=== PATIENT | female | born 1960 | race Caucasian/White ===

== ENCOUNTER 2018-08-25 00:32 | Emergency (ER) | payer MEDICAID ==
[~2018-08-25] VITALS: Ht 162.6 cm; Wt 78.0 kg
--- NOTE | 2018-08-25 01:15 | NUR ---
DONNA FROM HOME. AAOX4. NAD, BREATHING IS EVEN AND UNLABORED. AMBULATORY. C/O HIGH BLOOD PRESSURE THIS EVENING WITH HIGH RESULT 183/101. PT REPORTED THAT SHE TOOK 1 LISINOPRIL ,UNKNOWN DOSE AND 1/2 ATENOLOL, UNKNOWN DOSE. PT ALSO REPORTS THAT SHE FELT TIGHTNESS ON HER NECK, SHOULDER AND SHARP PAIN ON HER LEFT CHEST EARLIER THIS EVENING. PT TO ER BED 3. HOOKED ON MONITOR. AWAITING MD FOR CHRISTIANO.
--- NOTE | 2018-08-25 02:02 | NUR ---
IV LINE OBTAINED ON R HAND 20G. BLOOD DRAWN, SENT TO LAB. AT BEDSIDE FOR EVAL. AWAITING ORDERS
--- NOTE | 2018-08-25 02:11 | NUR ---
EKG AT BEDSIDE
[2018-08-25 02:19] LABS: BASOPHILS # (AUTO) 0.1 /CMM (0.0-0.2); BASOPHILS % (AUTO) 1.1 % (0.0-2.0); EOSINOPHILS % (AUTO) 4.5 % (0.0-6.0); HEMATOCRIT 37 % (33-45); HEMOGLOBIN 12.3 g/dL (11.5-14.8); LYMPHOCYTES % (AUTO) 21.3 % (20.0-44.0); MEAN CORPUSCULAR HGB CONC 33 g/dl (31.0-36.0); MEAN CORPUSCULAR VOLUME 91 fL (82-100); MONOCYTES # (AUTO) 0.7 /CMM (0.1-1.30); MONOCYTES % (AUTO) 7.1 % (2.0-12.0); NEUTROPHILS # (AUTO) 6.3 /CMM (1.8-8.9); PLATELET COUNT (AUTO) 284 /CMM (150-450); RED BLOOD CELL COUNT(AUTO) 4.06 MIL/uL (4.0-5.2); WHITE BLOOD COUNT (AUTO) 9.5 K/uL (4.3-11.0)
[2018-08-25 02:31] LABS: CALCIUM, SERUM 9.3 mg/dL (8.5-10.1); CARBON DIOXIDE 27 mmol/L (21-32); CHLORIDE 105 mmol/L (98-107); CREATININE 0.7 mg/dL (0.6-1.3); GLUCOSE 126 mg/dL (74-106); POTASSIUM 3.9 mmol/L (3.5-5.1); SODIUM SERUM 141 mmol/L (136-145); UREA NITROGEN, BLOOD 18 mg/dL (7-18)
[2018-08-25 02:45] LABS: ALANINE AMINOTRANSFERASE 52 U/L (12-78); ALBUMIN 3.8 g/dL (3.4-5.0); ALKALINE PHOSPHATASE 112 U/L (46-116); ASPARTATE AMINOTRANSFERASE 28 U/L (15-37); B-TYPE NATRIURETIC PEPTIDE 33 PG/ML (0-125); BILIRUBIN,DIRECT 0.1 mg/dL (0.0-0.2); BILIRUBIN,TOTAL 0.2 mg/dL (0.2-1.0); TOTAL PROTEIN, SERUM 7.6 g/dL (6.4-8.2)
--- NOTE | 2018-08-25 04:18 | NUR ---
Patient discharged to home in stable condition. Written and verbal after care instructions given. Patient verbalizes understanding of instruction.IV removed. Catheter intact and site benign. Pressure and 4x4 applied to site. No bleeding noted. Pt ambulatory with a steady gait
[2018-08-25 04:19] VITALS: BP 143/87
== END 2018-08-25 04:18 | disposition home or self-care (01) ==
LOC: ER 00:34
DX: R07.89 Other chest pain (principal); I10 Essential (primary) hypertension; R94.31 Abnormal electrocardiogram [ECG] [EKG]; Z98.890 Other specified postprocedural states; Z60.2 Problems related to living alone
CPT/HCPCS: 36415; 71045-TC; 80048-TC; 80076-TC; 83880; 84484-TC; 85025-TC; 85730-TC

== ENCOUNTER 2021-05-06 17:29 | Emergency (ER) | payer MEDICAID ==
[~2021-05-06] VITALS: Ht 162.6 cm; Wt 74.8 kg
[2021-05-06 18:18] LABS: BASOPHILS # (AUTO) 0.1 K/uL (0.0-0.2); BASOPHILS % (AUTO) 1.2 % (0.0-2.0); EOSINOPHILS % (AUTO) 2.8 % (0.0-6.0); HEMATOCRIT 35 % (33-45); HEMOGLOBIN 11.9 g/dL (11.5-14.8); LYMPHOCYTES # (AUTO) 2.2 K/uL (0.8-4.8); LYMPHOCYTES % (AUTO) 20.5 % (20.0-44.0); MEAN CORPUSCULAR HGB CONC 34 g/dl (31.0-36.0); MEAN CORPUSCULAR VOLUME 90 fL (82-100); MONOCYTES # (AUTO) 0.8 K/uL (0.1-1.30); MONOCYTES % (AUTO) 7.5 % (2.0-12.0); NEUTROPHILS # (AUTO) 7.3 K/uL (1.8-8.9); PLATELET COUNT (AUTO) 343 K/uL (150-450); RED BLOOD CELL COUNT(AUTO) 3.88 MIL/uL (4.0-5.2); WHITE BLOOD COUNT (AUTO) 10.8 K/uL (4.3-11.0)
[2021-05-06 18:23] LABS: BILIRUBIN,URINE NEGATIVE (NEGATIVE); COLOR,URINE YELLOW (YELLOW); LEUKOCYTE ESTERASE ,URINE NEGATIVE (NEGATIVE); NITRITE, URINE NEGATIVE (NEGATIVE); PROTEIN,URINE NEGATIVE (NEGATIVE); UGLUCOSE NEGATIVE (NEGATIVE); UROBILINOGEN,URINE 0.2 EU/dL (0.2)
[2021-05-06 18:29] LABS: CALCIUM, SERUM 8.8 mg/dL (8.5-10.1); CREATININE 0.6 mg/dL (0.6-1.3); POTASSIUM 4.1 mmol/L (3.5-5.1)
[2021-05-06 18:33] LABS: BACTERIA,URINE 1+ /HPF (None Seen); SQUAMOUS EPITHELIAL CELL,UR 0-2 /HPF (None Seen); WBC,URINE 0-2 /HPF (0-3)
[2021-05-06 19:50] VITALS: BP 143/83
== END 2021-05-06 19:51 | disposition home or self-care (01) ==
LOC: ER 18:02
DX: R50.9 Fever, unspecified (principal); I10 Essential (primary) hypertension; Z20.822 Contact with and (suspected) exposure to COVID-19; E87.1 Hypo-osmolality and hyponatremia
CPT/HCPCS: 36415; 71045; 71250; 80048; 81001; 83605; 85025; 87086; 87426; 87804; 99285; C9803

== ENCOUNTER 2022-04-04 21:05 | Inpatient (IN) | payer MEDICAID ==
[~2022-04-04] VITALS: Ht 160 cm; Wt 74.8 kg
--- NOTE | 2022-04-04 22:45 | NUR ---
[facility] TRIAGE 182/108. STOPPED TAKING MEDS X2 WEEKS. COMPLAINING OF CHEST PRESSURE USED ON/OFF HEADACHE AND BLURRY VISION. PATIENT IS AAOX4. ABLE TO MAKE NEEDS KNOWN. PLACED COMFORTABLY IN BED. VITALS CHECKED.
--- NOTE | 2022-04-04 22:51 | NUR ---
EKG DONE AT BEDSIDE.
[2022-04-04 23:42] LABS: BASOPHILS % (AUTO) 0.6 % (0.0-2.0); EOSINOPHILS % (AUTO) 1.9 % (0.0-6.0); HEMATOCRIT 36 % (33-45); LYMPHOCYTES # (AUTO) 1.6 K/uL (0.8-4.8); LYMPHOCYTES % (AUTO) 27.9 % (20.0-44.0); MEAN CORPUSCULAR HGB CONC 33 g/dl (31.0-36.0); MEAN CORPUSCULAR VOLUME 93 fL (82-100); MONOCYTES # (AUTO) 0.6 K/uL (0.1-1.30); MONOCYTES % (AUTO) 10.6 % (2.0-12.0); NEUTROPHILS # (AUTO) 3.4 K/uL (1.8-8.9); PLATELET COUNT (AUTO) 396 K/uL (150-450); RED BLOOD CELL COUNT(AUTO) 3.87 MIL/uL (4.0-5.2); WHITE BLOOD COUNT (AUTO) 5.7 K/uL (4.3-11.0)
--- NOTE | 2022-04-04 23:44 | NUR ---
BLOOD DRAWN AND SENT TO LAB
--- NOTE | 2022-04-04 23:45 | NUR ---
XRAY AT BEDSIDE
[2022-04-05 00:21] LABS: CALCIUM, SERUM 9.7 mg/dL (8.5-10.1); CARBON DIOXIDE 23 mmol/L (21-32); CHLORIDE 104 mmol/L (98-107); CREATININE 0.7 mg/dL (0.6-1.3); GLUCOSE 93 mg/dL (74-106); POTASSIUM 3.7 mmol/L (3.5-5.1); SODIUM SERUM 135 mmol/L (136-145); UREA NITROGEN, BLOOD 19 mg/dL (7-18)
[2022-04-05] MEDS ORDERED: MAGNESIUM HYDROXIDE 30 ML UDC PO PRN (03:30)
[2022-04-05] MEDS ORDERED: ONDANSETRON HCL/PF 4 MG/2 ML VIAL IVP PRN (03:30)
[2022-04-05] MEDS ORDERED: ACETAMINOPHEN 325 MG TABLET PO PRN (03:30)
[2022-04-05] MEDS ORDERED: MAG HYDROX/AL HYDROX/SIMETH 30 ML UDC PO PRN (03:30)
[2022-04-05] MEDS ORDERED: ZOLPIDEM TARTRATE 5 MG TABLET PO PRN (03:30)
[2022-04-05] MEDS ORDERED: Z GUARD REMEDY 4 OZ OINT TP PRN (03:30)
[2022-04-05] MEDS ORDERED: hydrALAZINE HCL 25 MG TABLET PO PRN (03:30)
--- NOTE | 2022-04-05 07:15 | NUR ---
REPORT GIVEN TO MARCELLA MOSER
--- NOTE | 2022-04-05 07:15 | NUR ---
REceived pt from CHARLA RN pt awake and alert dineses chest pain or sob
--- NOTE | 2022-04-05 07:47 | NUR ---
room 310-2
[2022-04-05] MEDS ORDERED: PANTOPRAZOLE 40 MG TABLET.DR PO ONE (07:54)
[2022-04-05] MEDS ORDERED: HYDROCHLOROTHIAZIDE 25 MG TABLET ONE (07:54)
[2022-04-05] MEDS: PANTOPRAZOLE 40 MG TABLET.DR PO SCH (07:55)
--- NOTE | 2022-04-05 08:05 | NUR ---
TO ROOM 310-2 VIA GARNY AWAKE AND ALERT NO CHEST PAIN NO SOB
[2022-04-05 08:12] VITALS: BP 167/56
--- NOTE | 2022-04-05 08:15 | NUR ---
RECEIVED PT VIA GURNEY, PT A/O X4, BREATHING EVENLY AND UNLABORED, NO SIGNS OF DISTRESS NOTED VITALS: BP:167/56; HR: 98; R: 20; T: 98.2; SPO2: 98. PT DENIES ANY PAIN, OR DISCOMFORT, SKIN ASSESSMENT PERFORMED, CDI, NO EDEMA PRESENT, BOWEL SOUNDS ACTIVE. PT HAS IV ACCESS ON LAC #20G PATENT AND INTACT. PT WAS ORIENTED TO RM AND HOW TO USE THE CALL LIGHT, ALL BELONGINGS ACCOUNTED FOR, SAFETY MEASURES IN PLACE, BED IN LOW, LOCKED POSITION, HOB ELEVATED CALL LIGHT WITHIN REACH. WILL CONTINUE TO MONITOR PT.
[2022-04-05] MEDS ORDERED: AMLO-212 PO (09:01)
[2022-04-05] MEDS ORDERED: LOSA50TA39 PO (09:01)
[2022-04-05] MEDS: VALSARTAN 80 MG TABLET PO SCH ×2 (09:52→09:54)
[2022-04-05] MEDS ORDERED: CLONIDINE HCL 0.1 MG TABLET PO PRN (11:00)
[2022-04-05] MEDS: AMLODIPINE BESYLATE 5 MG TABLET PO SCH (11:28)
[2022-04-05] MEDS: LOSARTAN POTASSIUM 50 MG TABLET PO SCH (11:29)
[2022-04-05 12:00] VITALS: BP 141/53
--- NOTE | 2022-04-05 12:30 | NUR ---
RN/CTA PATIENT AOX3. ABLE TO MAKE NEEDS KNOWN. DENIED PAIN OR SOB. AWARE OF PLAN OF CARE. NOTED CONSENTF IN CHART - SIGNED.
[2022-04-05] MEDS ORDERED: CT SWABBABLE VALVE TRANS SET 1 EA INFUS.SET MC ONE (12:32)
[2022-04-05] MEDS ORDERED: IV NS 0.9% 250 ML IV ONE (12:32)
[2022-04-05] MEDS ORDERED: NITROGLYCERIN 0.4 MG/TAB BOTTLE ONE (12:32)
[2022-04-05] MEDS ORDERED: IOHEXOL-350 100 ML VIAL IV ONE ×2 (12:32→12:51)
[2022-04-05] MEDS ORDERED: METOPROLOL TARTRATE INJ 5 MG/5 ML AMPUL ONE ×3 (12:32→12:43)
[2022-04-05] MEDS: METOPROLOL TARTRATE INJ 5 MG/5 ML AMPUL IVP PRN ×2 (12:35→12:40)
--- NOTE | 2022-04-05 12:50 | NUR ---
CTA/RN 1245 - IV TO LAC 20G AND RFA 20G (UPPER) BOTH INFILTRATED DURING THE PROCEDURE. FACILITY PROTOCOL INITIATED. WARM COMPRESS APPLIED TO AFFECTED AREAS. IV STARTED TO RFA 20G (LOWER) IN PLACE AND PATENT. 1250 - COMPLETED PROCEDURE, PATIENT EMMETT. REPORT GIVEN TO AUGUST FOR JILL.
[2022-04-05] MEDS ORDERED: NITROGLYCERIN 0.4 MG/TAB BOTTLE SL ONE (14:00)
[2022-04-05 16:00] VITALS: BP 131/55
--- NOTE | 2022-04-05 19:15 | NUR ---
PT IN BED ASLEEP, EASY TO AROUSE. ABLE TO VERBALIZE NEEDS. NO ACUTE EVENTS THROUGHOUT THE DAY. SATURATING AT 98% ON ROOM AIR. NO SOB OR NOTED. AFEBRILE. DENIES PAIN AT THIS TIME. ON TELE MONITOR READING SINUS RHYTHM AT 75 BPM. RIGHT HAND IV ACCESS #20G INTACT, PATENT AND FLUSHING.. ALL DUE MEDS GIVEN AND NEEDS ATTENDED. SAFETY PRECAUTIONS MAINTAINED. WILL ENDORSE TO NEXT ROUTE SALES PERSON RN FOR JILL.
--- NOTE | 2022-04-05 19:34 | NUR ---
RN OPENING NOTES; RECEIVED PT IN BED SLEEPING WITH HOB ELEVATED,EMMETT WELL ON RM AIR,SATTING 97.6% NO SIGN SOB/DISTRESS NOTED,IV ON JADE 20G PATENT AND INTACT,SAFETY MEASURE IN PLACE,CALL LIGHT WITHIN REACH,WILL CONTINUE TO MONITOR,
[2022-04-05 20:00] VITALS: BP 125/58
[2022-04-06] VITALS: BP 123/65
[2022-04-06 04:00] VITALS: BP 118/62
--- NOTE | 2022-04-06 06:49 | NUR ---
RN CLOSING NOTES; PT IN BED AAOX4,ABLE TO MAKE NEEDS KNOWN,EMMETT WELL ON RM AIR,SATTING 98% NO SIGN SOB/DISTRESS NOTED,NO COMPLAINED OF PAIN/DISCOMFORT DURING SHIFT,DUE MEDS GIVEN ORDER,ALL NEEDS ATTENDED,IV ON JADE 20G AND RFAPATENT AND INTACT,SAFETY MEASURE IN PLACE,CALL LIGHT WITHIN REACH,WILL ENDORSED TO NEXT SHIFT.
[2022-04-06 07:21] LABS: BASOPHILS % (AUTO) 0.4 % (0.0-2.0); HEMATOCRIT 39 % (33-45); LYMPHOCYTES # (AUTO) 1.9 K/uL (0.8-4.8); LYMPHOCYTES % (AUTO) 21.8 % (20.0-44.0); MEAN CORPUSCULAR HGB CONC 34 g/dl (31.0-36.0); MEAN CORPUSCULAR VOLUME 90 fL (82-100); MONOCYTES # (AUTO) 0.6 K/uL (0.1-1.30); MONOCYTES % (AUTO) 6.9 % (2.0-12.0); NEUTROPHILS # (AUTO) 5.9 K/uL (1.8-8.9); NEUTROPHILS % (AUTO) 67.9 % (43.0-81.0); PLATELET COUNT (AUTO) 315 K/uL (150-450); RED BLOOD CELL COUNT(AUTO) 4.29 MIL/uL (4.0-5.2); WHITE BLOOD COUNT (AUTO) 8.8 K/uL (4.3-11.0)
--- NOTE | 2022-04-06 07:35 | NUR ---
RN OPENING NOTE RECEIVED PT IN BED SLEEPING WITH HOB ELEVATED,EMMETT WELL ON RM AIR, O2 SAT= 98% NO SIGN OF SOB/DISTRESS NOTED. IV ON JADE 20G PATENT AND INTACT. SAFETY MEASURE IN PLACE. CALL LIGHT WITHIN REACH. WILL CONTINUE TO MONITOR,
[2022-04-06 07:37] LABS: CALCIUM, SERUM 9.2 mg/dL (8.5-10.1); CREATININE 0.8 mg/dL (0.6-1.3); MAGNESIUM 2.3 mg/dL (1.8-2.4); PHOSPHORUS 4.3 mg/dL (2.5-4.9); POTASSIUM 3.7 mmol/L (3.5-5.1)
[2022-04-06 08:00] VITALS: BP 142/65
[2022-04-06] MEDS: PANTOPRAZOLE 40 MG TABLET.DR PO SCH (08:04)
[2022-04-06 09:08] LABS: CHOLESTEROL 261 mg/dL (<200); HDL CHOLESTEROL 67 mg/dL (40-60); LDL 166 mg/dL (0-99); TRIGLYCERIDES 117 mg/dL (30-150)
[2022-04-06] MEDS: VALSARTAN 80 MG TABLET PO SCH (10:12)
[2022-04-06] MEDS: LOSARTAN POTASSIUM 50 MG TABLET PO SCH (10:13)
[2022-04-06] MEDS: AMLODIPINE BESYLATE 5 MG TABLET PO SCH (10:13)
[2022-04-06] MEDS ORDERED: AMLO-212 PO (10:59)
[2022-04-06] MEDS ORDERED: LOSA50TA39 PO (10:59)
[2022-04-06 12:00] VITALS: BP 116/32
--- NOTE | 2022-04-06 13:20 | NUR ---
DISCHARGE HOME RN NOTE Patient's peripheral IV catheter removed, fully intact. Patient and patient' s daughter reviewed the discharge home care instructions and verbalized understanding with teach back method of educating patient. Patient signed understanding and receipt of discharge home care instructions. Patient accounted for all of her belongings/ valuables. Patient and her daughter departed the hospital at 13:15 hours walking to private car bound for her home.
== END 2022-04-06 13:00 | disposition home or self-care (01) | DRG 199 ==
LOC: ER 21:06 → TELE 04-05 08:31
PROVIDERS: ADMIT Internal Medicine; ATTEND Internal Medicine
DX: I16.0 Hypertensive urgency (principal); E87.1 Hypo-osmolality and hyponatremia; I10 Essential (primary) hypertension; Z20.822 Contact with and (suspected) exposure to COVID-19; Z98.890 Other specified postprocedural states; Z87.448 Personal history of other diseases of urinary system
CPT/HCPCS: 36415; 71045-TC; 75574; 80048-TC; 80061-TC; 83735-TC; 84100-TC; 84484-TC; 85025-TC; 87081-TC; 93307-TC; C9803; G0378; J3490; J7050; Q9967

== ENCOUNTER 2023-05-17 03:22 | Inpatient (IN) | payer BC, MEDICAID ==
[~2023-05-17] VITALS: Ht 160 cm; Wt 77.1 kg
[~2023-05-17 03:22] MED LIST: AMLO-212 PO; LOSA50TA39 PO
[2023-05-17] MEDS ORDERED: CLONIDINE HCL 0.1 MG TABLET ONE (04:50)
[2023-05-17 04:51] LABS: BASOPHILS % (AUTO) 0.4 % (0.0-2.0); EOSINOPHILS # (AUTO) 0.2 K/uL (0.0-0.7); EOSINOPHILS % (AUTO) 1.8 % (0.0-6.0); HEMATOCRIT 38 % (33-45); HEMOGLOBIN 12.5 g/dL (11.5-14.8); LYMPHOCYTES # (AUTO) 1.4 K/uL (0.8-4.8); LYMPHOCYTES % (AUTO) 14.9 % (20.0-44.0); MEAN CORPUSCULAR HEMOGLOBIN 30 PG (26.0-33.0); MEAN CORPUSCULAR HGB CONC 33 g/dl (31.0-36.0); MEAN CORPUSCULAR VOLUME 91 fL (82-100); MONOCYTES # (AUTO) 0.6 K/uL (0.1-1.30); MONOCYTES % (AUTO) 6.5 % (2.0-12.0); NEUTROPHILS # (AUTO) 7.4 K/uL (1.8-8.9); NEUTROPHILS % (AUTO) 76.4 % (43.0-81.0); PLATELET COUNT (AUTO) 273 K/uL (150-450); RED BLOOD CELL COUNT(AUTO) 4.19 MIL/uL (4.0-5.2); RED CELL DISTRIBUTION WIDTH 13.4 % (11.5-15.0); WHITE BLOOD COUNT (AUTO) 9.7 K/uL (4.3-11.0)
[2023-05-17] MEDS: CLONIDINE HCL 0.1 MG TABLET PO ONE (04:55)
[2023-05-17 04:57] LABS: CALCIUM, SERUM 9.6 mg/dL (8.5-10.1); CREATININE 0.7 mg/dL (0.6-1.3); POTASSIUM 3.9 mmol/L (3.5-5.1)
[2023-05-17 05:10] LABS: BILIRUBIN,TOTAL 0.5 mg/dL (0.2-1.0); TOTAL PROTEIN, SERUM 7.6 g/dL (6.4-8.2)
[2023-05-17] MEDS ORDERED: ASPIRIN 325 MG TABLET ONE (05:38)
[2023-05-17] MEDS: ASPIRIN 325 MG TABLET PO ONE (05:55)
[2023-05-17 06:00] VITALS: O2SAT 98
[2023-05-17] MEDS ORDERED: hydrALAZINE HCL IV 20 MG VIAL IV PRN (06:30)
[2023-05-17] MEDS ORDERED: ONDANSETRON HCL/PF 4 MG/2 ML VIAL IVP PRN (06:30)
[2023-05-17] MEDS ORDERED: MAG HYDROX/AL HYDROX/SIMETH 30 ML UDC PO PRN (06:30)
[2023-05-17] MEDS ORDERED: MORPHINE SULFATE INJ 2 MG/ML DISP.SYRIN IV PRN (06:30)
[2023-05-17] MEDS ORDERED: ACETAMINOPHEN 325 MG TABLET PO PRN (06:30)
[2023-05-17] MEDS ORDERED: ROSU20TA2 PO (09:25)
[2023-05-17] MEDS ORDERED: LISI10TA29 PO (09:25)
[2023-05-17] MEDS ORDERED: TRIA1CAP20 PO (09:25)
[2023-05-17] MEDS ORDERED: PANT40TA2 PO (09:25)
[2023-05-17] MEDS ORDERED: METO-357 PO (09:25)
[2023-05-17] MEDS ORDERED: LEVO75TA PO (09:25)
[2023-05-17] MEDS: LOSARTAN POTASSIUM 50 MG TABLET PO SCH (14:12)
[2023-05-17] MEDS: AMLODIPINE BESYLATE 5 MG TABLET PO SCH (14:12)
[2023-05-17] MEDS: HEPARIN SODIUM, PORCINE 5000 UNITS/1 ML VIAL SQ SCH (14:14)
[2023-05-17 20:56] VITALS: BP 113/55; TEMP 98.4; O2SAT 98
[2023-05-18 00:20] VITALS: BP 108/59; TEMP 98.2; O2SAT 97
[2023-05-18 04:35] VITALS: BP 125/67; TEMP 97.9; O2SAT 97
[2023-05-18 06:31] LABS: BASOPHILS % (AUTO) 0.7 % (0.0-2.0); EOSINOPHILS # (AUTO) 0.3 K/uL (0.0-0.7); EOSINOPHILS % (AUTO) 3.8 % (0.0-6.0); HEMATOCRIT 34 % (33-45); HEMOGLOBIN 11.4 g/dL (11.5-14.8); LYMPHOCYTES % (AUTO) 29.2 % (20.0-44.0); MEAN CORPUSCULAR HEMOGLOBIN 30 PG (26.0-33.0); MEAN CORPUSCULAR HGB CONC 34 g/dl (31.0-36.0); MEAN CORPUSCULAR VOLUME 90 fL (82-100); MONOCYTES # (AUTO) 0.6 K/uL (0.1-1.30); MONOCYTES % (AUTO) 8.8 % (2.0-12.0); NEUTROPHILS # (AUTO) 3.9 K/uL (1.8-8.9); NEUTROPHILS % (AUTO) 57.5 % (43.0-81.0); PLATELET COUNT (AUTO) 249 K/uL (150-450); RED BLOOD CELL COUNT(AUTO) 3.76 MIL/uL (4.0-5.2); RED CELL DISTRIBUTION WIDTH 13.5 % (11.5-15.0); WHITE BLOOD COUNT (AUTO) 6.8 K/uL (4.3-11.0)
[2023-05-18 06:39] LABS: ALBUMIN 3.1 g/dL (3.4-5.0); BILIRUBIN,TOTAL 0.5 mg/dL (0.2-1.0); CREATININE 0.6 mg/dL (0.6-1.3); MAGNESIUM 2.1 mg/dL (1.8-2.4); PHOSPHORUS 3.5 mg/dL (2.5-4.9); POTASSIUM 3.9 mmol/L (3.5-5.1); TOTAL PROTEIN, SERUM 6.1 g/dL (6.4-8.2)
[2023-05-18 08:24] VITALS: BP 130/66; TEMP 98.2; O2SAT 99
[2023-05-18 12:00] VITALS: BP 142/65; TEMP 98.5; O2SAT 97
== END 2023-05-18 16:02 | disposition home or self-care (01) | DRG 199 ==
LOC: ER 03:33 → TELE 11:53
PROVIDERS: ADMIT Nurse Practitioner Acute Care; ATTEND Nurse Practitioner Acute Care
DX: I16.0 Hypertensive urgency (principal); I21.A1 Myocardial infarction type 2; E66.9 Obesity, unspecified; E11.9 Type 2 diabetes mellitus without complications; N81.10 Cystocele, unspecified; Z68.30 Body mass index [BMI] 30.0-30.9, adult; I10 Essential (primary) hypertension; Z87.448 Personal history of other diseases of urinary system; Z98.890 Other specified postprocedural states; Z79.899 Other long term (current) drug therapy; Z79.890 Hormone replacement therapy
CPT/HCPCS: 36415; 71045-TC; 76700-TC; 80053-TC; 83735-TC; 83880; 84100-TC; 84484-TC; 85025-TC; 93307-TC; G0378; J1644